=== PATIENT | male | born 1935 | race Caucasian/White ===

== ENCOUNTER 2024-09-18 13:43 | Outpatient (CLI) | payer MEDICARE, BC | END 2024-09-18 13:44 | disposition home or self-care (01) | LOC: CSHCT 13:43 | PROVIDERS: ATTEND Otolaryngology Plastic Surgery within the Head & Neck | DX: K11.20 Sialoadenitis, unspecified (principal); K11.1 Hypertrophy of salivary gland | CPT/HCPCS: 70491; 82565 ==